=== PATIENT | female | born 1990 | race Hispanic/Latino ===

== ENCOUNTER → 2017-05-04 | Outpatient (CLI) | payer OTHER ==
--- NOTE | 2017-05-04 09:45 | REP ---
Clinical: Scoliosis . Technique: AP, lateral, flexion/extension, bilateral oblique, and open-mouth views. Findings: Alignment and lordosis is maintained. There is no evidence for acute fracture / compression injury or subluxation. No significant degenerative changes are appreciated. Oblique views demonstrate patent neural foramen. Open mouth view demonstrates normal C1-C2 articulation and odontoid process. Impression: Normal cervical spine series. Signed by Sam Enriquez MD 05/04/2017 09:37 A
--- NOTE | 2017-05-04 09:46 | REP ---
Clinical: Scoliosis. Technique: AP, lateral, swimmers views of the thoracic spine. Findings: Frontal view demonstrates 126 degrees of dextroconvex scoliosis through the thoracolumbar spine centered at the T9-10 level. No acute fracture / compression injury. Alignment is maintained in the lateral views. No paravertebral soft tissue mass lesion or abnormalities appreciated. Impression: Dextroconvex scoliosis to the thoracolumbar spine. Signed by Sam Enriquez MD 05/04/2017 09:38 A
--- NOTE | 2017-05-04 09:48 | REP ---
Clinical: Scoliosis. Technique: AP, lateral, bilateral oblique, flexion/extension and coned-down views of the lumbosacral spine. Findings: Significant dextroconvex scoliosis through the visualized lower thoracic spine extends into the lumbar spine. The L4 through sacrum demonstrate normal appearance in the frontal projection without continued scoliosis. The lumbosacral spine is otherwise unremarkable without spondylolysis or spondylolisthesis. No acute fracture / compression injury or subluxation. Flexion and extension views are stable. Impression: Significant dextroconvex scoliosis of the thoracic spine extends through the mid lumbar levels. Otherwise normal lumbosacral spine examination. Signed by Sam Enriquez MD 05/04/2017 09:40 A
== END ==
LOC: M RAD 08:44
PROVIDERS: ATTEND Physician Assistant Medical
DX: M41.84 Other forms of scoliosis, thoracic region (principal); M41.85 Other forms of scoliosis, thoracolumbar region; M41.86 Other forms of scoliosis, lumbar region

== ENCOUNTER → 2017-07-26 | Outpatient (CLI) | payer OTHER ==
--- NOTE | 2017-07-27 05:43 | REP ---
Clinical: Pelvic and cranial pain . Technique: Transabdominal pelvic ultrasound followed by transvaginal examination for better evaluation of the endometrium and adnexa with color Doppler evaluation of the ovaries. Findings: Bladder is unremarkable and measures 3.4 x 3.4 x 7.4 cm . Normal anteverted uterus measures 8.0 x 3.6 x 4.3 cm . The endometrial complex measures 13.3 mm thickness. No discrete uterine or endometrial abnormalities are appreciated. Bilateral ovaries are normal in appearance and vascularity without evidence for torsion. Right ovary measures 3.4 x 2.2 x 3.0 cm ; R I = 0.65 . Left ovary measures 4.0 x 3.4 x 4.0 cm ; R I = 0.43 . Septated left ovarian cyst measures 3.2 x 2.9 x 3.2 cm and likely physiologic. No pelvic fluid or adnexal mass lesion . Impression: 1. 3.2 cm septated left ovarian cyst likely physiologic. Consider reevaluation of 46 weeks to evaluate for resolution. 2. Otherwise normal pelvic ultrasound. Signed by Sam Enriquez MD 07/27/2017 05:35 A
== END ==
LOC: M RAD 14:48
PROVIDERS: ATTEND Specialist
DX: N83.202 Unspecified ovarian cyst, left side (principal)

== ENCOUNTER → 2017-08-13 | Outpatient (CLI) | payer OTHER ==
--- NOTE | 2017-08-13 14:23 | REP ---
THORACIC SPINE, SCOLIOSIS SERIES: TWO VIEWS HISTORY: Scoliosis. COMPARISON STUDY: May 04, 2017 FINDINGS: A severe dextroconvex thoracic rotoscoliosis is seen with its apex at T10. This measures 86 degrees from T6 through L1. Using the same measurement technique, the prior study showed a 61 degree curve. No structural vertebral anomaly is seen. No bony destructive lesion is seen. IMPRESSION: Severe rotoscoliosis in the thoracic spine measuring 86 degrees today, more prominent than on the prior study of May 04, 2017. Signed by Freddy Gorman MD 08/13/2017 03:58 P
== END ==
LOC: M SMT 13:25
DX: M41.9 Scoliosis, unspecified (principal)

== ENCOUNTER → 2017-08-27 | Outpatient (CLI) | payer OTHER | LOC: M RAD 09:57 | DX: M41.9 Scoliosis, unspecified (principal); M51.26 Other intervertebral disc displacement, lumbar region; M51.86 Other intervertebral disc disorders, lumbar region | CPT/HCPCS: 72128 ==